=== PATIENT | female | born 1990 | race Caucasian/White ===

== ENCOUNTER 2023-10-16 20:36 | Emergency (ER) | payer BC, SELFPAY ==
[2023-10-16 20:39] VITALS: BP 141/90
[2023-10-16 21:36] LABS: % Basophils 0.4 % (0-2); % Eosinophils 0.6 % (0-6); % Immature Granulocytes 0.2 % (0-0.5); % Lymphocytes 28.7 % (20.5-51.1); % Monocytes 6.9 % (1.7-9.3); % Neutrophils 63.2 % (42.2-75.2); Absolute Eosinophils 0.1 10^3/uL (0-0.7); Absolute Lymphocytes 3.2 10^3/uL (1.2-3.4); Absolute Monocytes 0.8 10^3/uL (0.1-0.6); Absolute Neutrophils 7.1 10^3/uL (1.4-6.5); Hematocrit 35.7 % (37.0-47.0); Hemoglobin 12.2 g/dL (12.0-16.0); Mean Corp Hgb Conc. 34.2 g/dL (33.0-37.0); Mean Corpuscular Hgb 30.3 pg (27.0-31.0); Mean Corpuscular Volume 88.6 fL (81.0-99.0); Mean Platelet Volume 9.3 fL (7.4-10.4); Nucleated Red Blood Cells % 0 %; Platelet Count 297 10^3/uL (130-400); Red Blood Cell Count 4.03 10^6/uL (4.20-5.40); Red Cell Dist. Width 12.2 % (11.5-14.5); White Blood Cell Count 11.3 10^3/uL (4.8-10.8)
[2023-10-16 21:47] LABS: ALT (SGPT) 40 U/L (0-35); AST (SGOT) 29 U/L (14-36); Albumin 4.4 g/dl (3.5-5.0); Alkaline Phosphatase 61 U/L (38-126); Blood Urea Nitrogen 8 mg/dl (7-17); Calcium 9.7 mg/dl (8.4-10.2); Carbon Dioxide 23 mmol/L (22-30); Chloride 103 mmol/L (98-107); Glucose 86 mg/dl (70-99); Potassium 3.8 mmol/L (3.5-5.1); Sodium 137 mmol/L (135-145); Total Bilirubin 0.5 mg/dl (0.2-1.3); eGFR > 60.00
[2023-10-16 23:23] VITALS: BMI 38.7
[2023-10-16 23:25] VITALS: BP 135/82
--- NOTE | 2023-10-17 00:05 | ED.GENMED ---
History of Present Illness
General
Chief Complaint: Problems
Source: patient
Exam Limitations: none
Time Seen by Provider: 10/16/23 23:19
Travel History
Have you had any contact with someone who has COVID-19?: No
Do you have any symptoms of coronavirus? Fever > 100 degrees, chills, cough, shortness of breath, sore throat, loss of taste or smell, muscle aches, or headache?: No
History of Present Illness
History of Present Illness:
This is a 33 year old female that comes in with c/o vaginal bleeding. States that today at 5pm she had some very light cramping for about 5 min. States that they did go on a hike today. Then around 7pm she started with light vaginal bright red
bleeding. States that it was on her underwear. Then she started again with some dull cramping. States that she has a headache but attributed this to the fact that she pulled her neck. Denies any fever, chills, chest pain, SOB, nausea, vomiting,
diarrhea, dizziness, urinary burning.
Past History
Past History
ED Past Medical History: HTN; Negative Asthma, Hypercholesterolemia or NIDDM
ED Past Surgical History: None
Social History
Tobacco: Non-smoker
Alcohol: Occasional
Personal:
Living: with family
Review of Systems
Review of Systems
All Other Systems: ROS reviewed and negative except as documented in HPI and ROS
Constitutional: Reports no symptoms; Denies fever or chills
EENT: Reports no symptoms
Respiratory: Reports no symptoms; Denies cough or trouble breathing
Cardiac: Reports no symptoms; Denies chest pain
ABD/GI: Reports abdominal pain (Slight Cramping); Denies nausea, vomiting or diarrhea
: Reports bleeding (bright red vaginal bleeding)
Musculoskeletal: Reports no symptoms
Skin: Reports no symptoms
Neurological: Reports headache; Denies dizzy
Psychiatric: Reports no symptoms
Phy Exam
General Physical Exam
General Presentation: well appearing and no apparent distress
General age: appears stated age
General Skin: warm and dry
General Habitus: normal
General Mental: alert
General Hydration: appears well hydrated
ENT Exam
ENT Exam: TM's normal, pharynx normal and neck supple
Eye Exam
Eye Exam: EOMI
Cardiovascular Exam
Cardiovascular Exam: regular rate/rhythm, no edema, no murmur and normal peripheral pulses
Pulmonary Exam
Pulmonary Exam: lungs clear, no respiratory distress, no rales, chest non tender, no crackles, no rhonchi, no wheezing and no cough
Gastrointestinal Exam
Gastrointestinal Exam: normal bowel sounds, non tender, soft, no organomegaly, no pulsatile mass and non distended
Genitourinary Exam Female
Vaginal Bleeding: none (at this time on pad)
Musculoskeletal Exam
Musculoskeletal Exam: full ROM and no edema
Skin Exam
Skin Exam: normal color, warm/dry, no rash and no petechia
Psychiatric Exam
Psychiatric Exam: normal mood/affect
Course
Orders/Labs/Results
Orders:
Orders
10/16/23 21:10
Type+Screen Urgent
Beta HCG Quantitative Urgent
Is this a screen?: No
Comment: pt known to be
Complete Blood Count/With Diff Urgent
Comprehensive Metabolic Panel Urgent
10/17/23 00:04
0.9% Sodium Chloride 1000 ml [Nss] 1,000 ml IV BOLUS
US W Transvaginal Urgent
Comment: 9 weeks 3 days
Reason For Exam: vaginal bleeding, cramping
Abnormal Lab Results
10/16/23
21:10
WBC 11.3 H 10^3/uL
(4.8-10.8)
RBC 4.03 L 10^6/uL
(4.20-5.40)
Hct 35.7 L %
(37.0-47.0)
Absolute Neuts (auto) 7.1 H 10^3/uL
(1.4-6.5)
Absolute Monos (auto) 0.8 H 10^3/uL
(0.1-0.6)
Creatinine 0.4 L mg/dL
(0.6-1.0)
ALT 40 H U/L
(0-35)
10/16/23 21:10
10/16/23 21:10
WBC very slightly elevated. ALT elevation. HCG 129144.00
Vital Signs
Initial and Last Documented VS:
Initial Vital Signs
Temp Pulse Resp BP Pulse Ox
98.7 F 86 18 141/90 99
10/16/23 20:39 10/16/23 20:39 10/16/23 20:39 10/16/23 20:39 10/16/23 20:39
Last Documented Vital Signs
Temp Pulse Resp BP Pulse Ox
98.7 F 85 17 135/82 99
10/16/23 20:39 10/16/23 23:25 10/16/23 23:25 10/16/23 23:25 10/16/23 23:25
Information
Weeks gestation: Weeks: (9 weeks 5 days)
Location: Location: (Intrauterine)
MDM/Problems Addressed
Differential Diagnosis Includes:
early bleeding, Miscarriage
MDM/Problems Addressed:
This is a 33 year old female that comes in with c/o bright red light vaginal bleeding. States that she had light cramping around 5pm that lasted for about 5 min. Then she started with bleeding around 7pm and the cramping came back. States that she
is 9 weeks 3 days.
Will check labs and get Ultrasound, Will give IV fluids to fill
Back into see patient. Explained that her US shows that there was a Subchorionic hemorrhage. This can happen in early . Patient to follow up with her SHOW HOST/HOSTESS. No sexual activity until the bleeding stops. Return with any concerns.
Chronic conditions affecting care:
NA
Acute Exacerbation and/or Progression of Chronic Illness:
NA
*Radiology
Radiology exam reviewed: radiology read reviewed (US night hawk- 9 weeks 5 days intrauterine with heart rate 165pbpm. Small subchorionic bleed measuring 1.2 X 0.8 X 1.5cm. Ovaries are normal in contour and echogenicity. Ovarian
blood flow present bilaterally. )
*Pulse Oximetry
Patient hypoxic: no
*EKG
Interpreted by ED Provider?: NA
Rate: EKG- N/A
*Early Childhood Director Interpretation
Rate: Early Childhood Director- N/A
*Critical Care Note
Total Time (30-74mins, 75-104mins- exclusive of procedures): Not Applicable
ED Attending Note
-
Portions of this chart may have been created with voice recognition software.� Occasional wrong word or��sound alike� substitutions may have occurred due to the inherent limitations of voice recognition software.
Discharge Plan
Departure
Patient Disposition: Home (Routine Discharge)
Date of Disposition: 10/17/23
Time of Disposition: 01:14
Patient with high blood pressure during this ER visit?: Yes
Condition: Good
Covid-19: Not Applicable
Discharge Problem:
Subchorionic hemorrhage in first trimester
Instructions: Subchorionic Bleeding, BLOOD PRESSURE
Referrals:
Keerthi Cook DO [Family Provider] -
Activity Restrictions/Additional Instructions:
As discussed your Ultrasound shows you have a subchorionic hemorrhage. This will stop on its own. Babys heart rate is 164 and you ar 9 weeks 5 days. Take it easy over the weekend. Follow up with the your SHOW HOST/HOSTESS for recheck. Increase your water
intake to 8-8oz glasses daily. No sexual activity until there is no further bleeding. IF YOU HAVE ANY OTHER CONCERNS PLEASE RETURN TO THE EMERGENCY ROOM.
Interventions
Interventions:
*Risk Screen - Suicide Last Done: 10/16/23 23:23
*General Assessment Last Done: 10/16/23 23:23
*Neglect/Abuse Screening Last Done: 10/16/23 23:23
*ED COVID-19 Vaccine History Last Done: 10/16/23 20:39
ED-Female Genitourinary Assessment Last Done: 10/16/23 23:26
Discharge Date and Time
Print Language: MAORI
[2023-10-17 01:15] VITALS: BP 137/78
== END 2023-10-17 01:23 | disposition home or self-care (01) ==
LOC: EMR 20:36
PROVIDERS: Emergency Medicine; EMERGENCY PHYSICIAN Emergency Medicine; FAMILY PHYSICIAN Family Medicine
DX: O26.891 Other specified pregnancy related conditions, first trimester (principal); O20.8 Other hemorrhage in early pregnancy; I10 Essential (primary) hypertension; Z3A.09 9 weeks gestation of pregnancy
CPT/HCPCS: 99284; 76801; 76817; 80053; 84702; 85025; 86850; 86900; 86901

== ENCOUNTER → 2023-11-11 09:21 | Outpatient (REF) | payer BC, SELFPAY | LOC: PNTC 09:21 | PROVIDERS: ATTENDING PHYSICIAN Obstetrics & Gynecology | DX: Z36.0 Encounter for antenatal screening for chromosomal anomalies (principal) | CPT/HCPCS: 76801; 76813 ==

== ENCOUNTER → 2023-12-02 10:03 | Outpatient (REF) | payer BC, SELFPAY | LOC: PNTC 10:03 | PROVIDERS: ATTENDING PHYSICIAN Obstetrics & Gynecology | DX: O99.210 Obesity complicating pregnancy, unspecified trimester (principal); O13.9 Gestational [pregnancy-induced] hypertension without significant proteinuria, unspecified trimester | CPT/HCPCS: 76805 ==

== ENCOUNTER → 2023-12-30 10:35 | Outpatient (REF) | payer BC, SELFPAY | LOC: PNTC 10:35 | PROVIDERS: ATTENDING PHYSICIAN Obstetrics & Gynecology | DX: O99.210 Obesity complicating pregnancy, unspecified trimester (principal); O16.9 Unspecified maternal hypertension, unspecified trimester; O20.8 Other hemorrhage in early pregnancy | CPT/HCPCS: 76811 ==

== ENCOUNTER → 2024-01-26 07:57 | Outpatient (REF) | payer BC, SELFPAY | LOC: PNTC 07:57 | PROVIDERS: ATTENDING PHYSICIAN Obstetrics & Gynecology | DX: O99.210 Obesity complicating pregnancy, unspecified trimester (principal); O10.119 Pre-existing hypertensive heart disease complicating pregnancy, unspecified trimester; O46.90 Antepartum hemorrhage, unspecified, unspecified trimester | CPT/HCPCS: 76816 ==

== ENCOUNTER → 2024-02-23 08:31 | Outpatient (REF) | payer BC, SELFPAY | LOC: PNTC 08:31 | PROVIDERS: ATTENDING PHYSICIAN Obstetrics & Gynecology | DX: O99.210 Obesity complicating pregnancy, unspecified trimester (principal); O20.8 Other hemorrhage in early pregnancy; O10.119 Pre-existing hypertensive heart disease complicating pregnancy, unspecified trimester | CPT/HCPCS: 76816 ==

== ENCOUNTER → 2024-03-01 08:00 | Outpatient (REF) | payer BC, SELFPAY | LOC: PNTC 08:00 | PROVIDERS: ATTENDING PHYSICIAN Obstetrics & Gynecology | DX: O36.0131 Maternal care for anti-D [Rh] antibodies, third trimester, fetus 1 (principal); Z34.90 Encounter for supervision of normal pregnancy, unspecified, unspecified trimester | CPT/HCPCS: 36415; 86850; 86900; 86901; J2790 ==

== ENCOUNTER → 2024-03-21 07:52 | Outpatient (REF) | payer BC, SELFPAY | LOC: WDC 07:52 | PROVIDERS: ATTENDING PHYSICIAN Surgery | DX: N64.59 Other signs and symptoms in breast (principal); Z34.92 Encounter for supervision of normal pregnancy, unspecified, second trimester | CPT/HCPCS: 76642 ==

== ENCOUNTER → 2024-03-22 07:58 | Outpatient (REF) | payer BC, SELFPAY | LOC: PNTC 07:58 | PROVIDERS: ATTENDING PHYSICIAN Obstetrics & Gynecology | DX: O99.210 Obesity complicating pregnancy, unspecified trimester (principal); O10.119 Pre-existing hypertensive heart disease complicating pregnancy, unspecified trimester; O20.8 Other hemorrhage in early pregnancy | CPT/HCPCS: 59025; 76818 ==

== ENCOUNTER → 2024-03-29 07:55 | Outpatient (REF) | payer BC, SELFPAY | LOC: PNTC 07:55 | PROVIDERS: ATTENDING PHYSICIAN Obstetrics & Gynecology | DX: O99.210 Obesity complicating pregnancy, unspecified trimester (principal); O20.8 Other hemorrhage in early pregnancy; O10.119 Pre-existing hypertensive heart disease complicating pregnancy, unspecified trimester | CPT/HCPCS: 59025; 76815 ==

== ENCOUNTER → 2024-04-05 08:02 | Outpatient (REF) | payer BC, SELFPAY | LOC: PNTC 08:02 | PROVIDERS: ATTENDING PHYSICIAN Obstetrics & Gynecology | DX: O99.210 Obesity complicating pregnancy, unspecified trimester (principal); O10.119 Pre-existing hypertensive heart disease complicating pregnancy, unspecified trimester; O20.8 Other hemorrhage in early pregnancy | CPT/HCPCS: 59025; 76818 ==

== ENCOUNTER 2024-04-06 09:22 | Observation (INO) | payer BC, SELFPAY ==
[2024-04-06 09:50] VITALS: BP 116/61; BMI 38.5
[2024-04-06 10:15] LABS: % Basophils 0.3 % (0-2); % Eosinophils 0.8 % (0-6); % Immature Granulocytes 0.5 % (0-0.5); % Lymphocytes 17.7 % (20.5-51.1); % Monocytes 6.7 % (1.7-9.3); Absolute Eosinophils 0.1 10^3/uL (0-0.7); Absolute Immature Granulocytes 0.1 10^3/uL (0-0.05); Absolute Lymphocytes 1.7 10^3/uL (1.2-3.4); Absolute Monocytes 0.7 10^3/uL (0.1-0.6); Absolute Neutrophils 7.2 10^3/uL (1.4-6.5); Hematocrit 25.7 % (37.0-47.0); Hemoglobin 9.1 g/dL (12.0-16.0); Mean Corp Hgb Conc. 35.4 g/dL (33.0-37.0); Mean Corpuscular Hgb 30.4 pg (27.0-31.0); Mean Platelet Volume 9.8 fL (7.4-10.4); Nucleated Red Blood Cells % 0 %; Platelet Count 210 10^3/uL (130-400); Red Blood Cell Count 2.99 10^6/uL (4.20-5.40); Red Cell Dist. Width 13.2 % (11.5-14.5); White Blood Cell Count 9.7 10^3/uL (4.8-10.8)
[2024-04-06 10:21] LABS: ALT (SGPT) 16 U/L (0-35); AST (SGOT) 20 U/L (14-36); Albumin 3.1 g/dl (3.5-5.0); Alkaline Phosphatase 97 U/L (38-126); Blood Urea Nitrogen 5 mg/dl (7-17); Carbon Dioxide 19 mmol/L (22-30); Chloride 107 mmol/L (98-107); Estimated Creatinine Clearance > 125 ml/min; Glucose 113 mg/dl (70-99); Potassium 3.5 mmol/L (3.5-5.1); Sodium 138 mmol/L (135-145); Total Bilirubin 0.3 mg/dl (0.2-1.3); Total Protein 5.4 g/dl (6.3-8.2); eGFR > 60.00
[2024-04-06 11:05] LABS: Protein/creatinine Ratio 0.5; Urine Protein 17 mg/dl
== END 2024-04-06 12:30 | disposition home or self-care (01) ==
LOC: PNTC-IN 09:22
PROVIDERS: ADMITTING PHYSICIAN Student in an Organized Health Care Education/Training Program
DX: O11.3 Pre-existing hypertension with pre-eclampsia, third trimester (principal); O10.013 Pre-existing essential hypertension complicating pregnancy, third trimester; Z3A.34 34 weeks gestation of pregnancy
CPT/HCPCS: 76818; 80053; 82570; 84156; 85025; G0378

== ENCOUNTER → 2024-04-12 08:19 | Outpatient (REF) | payer BC, SELFPAY | LOC: PNTC 08:19 | PROVIDERS: ATTENDING PHYSICIAN Obstetrics & Gynecology | DX: O99.210 Obesity complicating pregnancy, unspecified trimester (principal); O10.119 Pre-existing hypertensive heart disease complicating pregnancy, unspecified trimester; O20.8 Other hemorrhage in early pregnancy | CPT/HCPCS: 59025; 76818 ==

== ENCOUNTER → 2024-04-19 07:59 | Outpatient (REF) | payer BC, SELFPAY | LOC: PNTC 07:59 | PROVIDERS: ATTENDING PHYSICIAN Obstetrics & Gynecology | DX: O99.210 Obesity complicating pregnancy, unspecified trimester (principal); O10.119 Pre-existing hypertensive heart disease complicating pregnancy, unspecified trimester; O20.8 Other hemorrhage in early pregnancy | CPT/HCPCS: 59025; 76818 ==

== ENCOUNTER → 2024-04-26 08:05 | Outpatient (REF) | payer BC, SELFPAY | LOC: PNTC 08:05 | PROVIDERS: ATTENDING PHYSICIAN Obstetrics & Gynecology | DX: O99.210 Obesity complicating pregnancy, unspecified trimester (principal); O10.019 Pre-existing essential hypertension complicating pregnancy, unspecified trimester; O46.90 Antepartum hemorrhage, unspecified, unspecified trimester | CPT/HCPCS: 59025; 76818 ==

== ENCOUNTER 2024-04-30 19:04 | Inpatient (IN) | payer BC, SELFPAY ==
[2024-04-30 19:10] VITALS: BMI 38.1
[2024-04-30 19:20] VITALS: BP 133/82
[2024-04-30 19:34] LABS: % Basophils 0.3 % (0-2); % Eosinophils 0.7 % (0-6); % Immature Granulocytes 0.5 % (0-0.5); % Lymphocytes 20.3 % (20.5-51.1); % Neutrophils 69.2 % (42.2-75.2); Absolute Eosinophils 0.1 10^3/uL (0-0.7); Absolute Immature Granulocytes 0.1 10^3/uL (0-0.05); Absolute Lymphocytes 2.2 10^3/uL (1.2-3.4); Absolute Neutrophils 7.7 10^3/uL (1.4-6.5); Hemoglobin 9.5 g/dL (12.0-16.0); Mean Corp Hgb Conc. 36.5 g/dL (33.0-37.0); Mean Corpuscular Hgb 30.9 pg (27.0-31.0); Mean Corpuscular Volume 84.7 fL (81.0-99.0); Mean Platelet Volume 9.7 fL (7.4-10.4); Nucleated Red Blood Cells % 0 %; Platelet Count 200 10^3/uL (130-400); Red Blood Cell Count 3.07 10^6/uL (4.20-5.40); Red Cell Dist. Width 13.4 % (11.5-14.5); White Blood Cell Count 11.1 10^3/uL (4.8-10.8)
[2024-04-30] MEDS: LR 1000 IV (19:36)
[2024-04-30] MEDS: CYTOTEC 50 MICROGRAM VAG (19:36)
[2024-04-30 19:54] LABS: ALT (SGPT) 20 U/L (0-35); AST (SGOT) 25 U/L (14-36); Albumin 3.2 g/dl (3.5-5.0); Alkaline Phosphatase 125 U/L (38-126); Blood Urea Nitrogen 9 mg/dl (7-17); Calcium 9.2 mg/dl (8.4-10.2); Carbon Dioxide 20 mmol/L (22-30); Chloride 106 mmol/L (98-107); Estimated Creatinine Clearance > 125 ml/min; Glucose 96 mg/dl (70-99); Potassium 3.4 mmol/L (3.5-5.1); Sodium 139 mmol/L (135-145); Total Bilirubin 0.4 mg/dl (0.2-1.3); Total Protein 5.7 g/dl (6.3-8.2); eGFR > 60.00
[2024-04-30] MEDS: TRANDATE 100 MG PO (21:58)
[2024-04-30] MEDS: CYTOTEC 50 MICROGRAM PO (23:32)
[2024-05-01] MEDS: LR 1000 IV ×3 (02:23→22:15)
[2024-05-01] MEDS: CYTOTEC 50 MICROGRAM PO (04:29)
[2024-05-01] MEDS: TRANDATE 200 MG PO ×2 (07:54→19:33)
[2024-05-01] MEDS: LEXAPRO 10 MG PO (07:54)
[2024-05-01] MEDS: PITOCIN 30 UNITS/NSS 500 ML IV (09:15)
[2024-05-01 12:02] VITALS: BP 132/89; BMI 28.1
[2024-05-01] MEDS: CYTOTEC PO (18:20)
[2024-05-01] MEDS: STADOL 1 MG IV (19:20)
[2024-05-01] MEDS: SUBLIMAZE 100 MCG EPIDURAL (20:27)
[2024-05-01] MEDS: FENTANYL/BUPIVACAINE 100 EPIDURAL (20:28)
[2024-05-02 01:30] LABS: B.E. Cord ABG -3.6 mMOL/L; Cord ABG Comment CORD BLOOD; HCO3 Cord ABG 20.6 mmol/L; O2 Saturation % Cord ABG 82.5 %; PCO2 Cord ABG 34 mmHg; PO2 Cord ABG 40 mmHg; pH Cord ABG 7.39
[2024-05-02 02:58] LABS: Hematocrit 25.6 % (37.0-47.0); Hemoglobin 9.2 g/dL (12.0-16.0); Mean Corp Hgb Conc. 35.9 g/dL (33.0-37.0); Mean Corpuscular Hgb 32.4 pg (27.0-31.0); Mean Corpuscular Volume 90.1 fL (81.0-99.0); Mean Platelet Volume 10.2 fL (7.4-10.4); Platelet Count 220 10^3/uL (130-400); Red Blood Cell Count 2.84 10^6/uL (4.20-5.40); Red Cell Dist. Width 13.4 % (11.5-14.5); White Blood Cell Count 16.7 10^3/uL (4.8-10.8)
[2024-05-02 03:20] LABS: INR 1.06; PT 13.7 Sec (11.4-14.6)
[2024-05-02 03:32] LABS: ALT (SGPT) 19 U/L (0-35); AST (SGOT) 27 U/L (14-36); Albumin 2.8 g/dl (3.5-5.0); Alkaline Phosphatase 123 U/L (38-126); Blood Urea Nitrogen 8 mg/dl (7-17); Calcium 8.4 mg/dl (8.4-10.2); Carbon Dioxide 22 mmol/L (22-30); Chloride 106 mmol/L (98-107); Estimated Creatinine Clearance > 125 ml/min; Glucose 102 mg/dl (70-99); Potassium 3.9 mmol/L (3.5-5.1); Sodium 136 mmol/L (135-145); Total Bilirubin 0.7 mg/dl (0.2-1.3); eGFR > 60.00
[2024-05-02] MEDS: LEXAPRO 10 MG PO (07:46)
[2024-05-02] MEDS: SENOKOT-S 1 TABLET PO (07:46)
[2024-05-02] MEDS: PRENATAL PLUS 1 TABLET PO (07:46)
[2024-05-02] MEDS: TRANDATE 100 MG PO (07:48)
[2024-05-02] MEDS: TRANDATE PO ×2 (10:55→21:33)
[2024-05-02] MEDS: MOTRIN 600 MG PO (12:59)
[2024-05-02] MEDS: PROCTOFOAM-HC FOAM 10 GM RECTAL (21:50)
--- NOTE | 2024-05-03 04:03 | DOWNTIME ---
There was a [employer] Client Statistician Downtime on 05/03/2024 from 0100 to 05/03/2024 at 0355. Downtime documentation of patient's care, including medication administrations, has been reconciled in the electronic record per guidelines. Refer to the
patient's paper chart under the miscellaneous tab to see printed paper medication records and downtime forms.
[2024-05-03 05:00] LABS: Hematocrit 22.1 % (37.0-47.0); Hemoglobin 7.9 g/dL (12.0-16.0)
[2024-05-03] MEDS: MOTRIN 600 MG PO ×2 (05:57→16:55)
[2024-05-03] MEDS: PRENATAL PLUS 1 TABLET PO (08:37)
[2024-05-03] MEDS: TRANDATE 200 MG PO ×2 (08:37→20:49)
[2024-05-03] MEDS: LEXAPRO 10 MG PO (08:38)
[2024-05-04] MEDS: MOTRIN 600 MG PO (05:22)
[2024-05-04] MEDS: PRENATAL PLUS 1 TABLET PO (08:36)
[2024-05-04] MEDS: FEOSOL 325 MG PO (08:36)
[2024-05-04] MEDS: LEXAPRO 10 MG PO (08:36)
[2024-05-04] MEDS: TRANDATE 100 MG PO (08:39)
[2024-05-04] MEDS: M-M-R II 0.5 ML SC (11:05)
[2024-05-05 16:26] LABS: Syphilis/T. pallidum Ab Reflex Negative (Negative)
== END 2024-05-04 11:39 | disposition home or self-care (01) | DRG 807 ==
LOC: LDRP 19:04
PROVIDERS: Obstetrics & Gynecology; ADMITTING PHYSICIAN Obstetrics & Gynecology; FAMILY PHYSICIAN Family Medicine
PROC: 3E0P7VZ Introduction of Hormone into Female Reproductive, Via Natural or Artificial Opening (ICD-10-PCS; 2024-04-30)
PROC: 3E033VJ Introduction of Other Hormone into Peripheral Vein, Percutaneous Approach (ICD-10-PCS; 2024-04-30)
PROC: 10907ZC Drainage of Amniotic Fluid, Therapeutic from Products of Conception, Via Natural or Artificial Opening (ICD-10-PCS; 2024-05-01)
PROC: 4A1HXCZ Monitoring of Products of Conception, Cardiac Rate, External Approach (ICD-10-PCS; 2024-05-01)
PROC: 0U7C7ZZ Dilation of Cervix, Via Natural or Artificial Opening (ICD-10-PCS; 2024-05-01)
PROC: 0KQM0ZZ Repair Perineum Muscle, Open Approach (ICD-10-PCS; 2024-05-02)
PROC: 10E0XZZ Delivery of Products of Conception, External Approach (ICD-10-PCS; 2024-05-02)
DX: O11.4 Pre-existing hypertension with pre-eclampsia, complicating childbirth (principal); Z37.0 Single live birth; O99.344 Other mental disorders complicating childbirth; O70.1 Second degree perineal laceration during delivery; O90.81 Anemia of the puerperium; F32.A Depression, unspecified; F41.9 Anxiety disorder, unspecified; Z3A.37 37 weeks gestation of pregnancy; Z79.899 Other long term (current) drug therapy
CPT/HCPCS: 88307; 36415; 80053; 82803; 85014; 85018; 85025; 85027; 85610; 86780; 86850; 86870; 86900; 86901; 90707; 93005

== ENCOUNTER → 2025-04-26 14:28 | Outpatient (REF) | payer BC, SELFPAY | LOC: DHSLP 14:28 | PROVIDERS: ATTENDING PHYSICIAN Internal Medicine; FAMILY PHYSICIAN Family Medicine | DX: G47.33 Obstructive sleep apnea (adult) (pediatric) (principal) | CPT/HCPCS: 95800 ==